=== PATIENT | male | born 1980 | race African-American/Black ===

== ENCOUNTER 2018-04-22 09:08 | Emergency (ER) | payer OTHER ==
[~2018-04-22] VITALS: Ht 180.3 cm; Wt 97.7 kg
[~2018-04-22 09:08] MED LIST: AUGMENTIN875 MG PO
[2018-04-22] MEDS ORDERED: FLEXERIL10 MG PO (11:49)
[2018-04-22 12:06] VITALS: BP 128/83
== END 2018-04-22 12:06 | disposition home or self-care (01) ==
LOC: EME 09:08
DX: S16.1XXA Strain of muscle, fascia and tendon at neck level, initial encounter (principal); M54.5 Low back pain; M41.9 Scoliosis, unspecified; V49.40XA Driver injured in collision with unspecified motor vehicles in traffic accident, initial encounter; Y92.410 Unspecified street and highway as the place of occurrence of the external cause; F31.9 Bipolar disorder, unspecified; F41.9 Anxiety disorder, unspecified; F32.9 Major depressive disorder, single episode, unspecified; B20 Human immunodeficiency virus [HIV] disease
CPT/HCPCS: 70450; 72125; 72128

== ENCOUNTER 2018-05-19 11:38 | Emergency (ER) | payer SELFPAY ==
[~2018-05-19] VITALS: Ht 180.3 cm; Wt 65.2 kg
[~2018-05-19 11:38] MED LIST changes: +FLEXERIL10 MG PO
[2018-05-19 12:14] VITALS: BP 111/70
== END 2018-05-19 12:54 | disposition left against medical advice (07) ==
LOC: EME 11:38
DX: M54.9 Dorsalgia, unspecified (principal); Z53.21 Procedure and treatment not carried out due to patient leaving prior to being seen by health care provider